=== PATIENT | female | born 1990 | race Caucasian/White ===

== ENCOUNTER 2021-07-29 22:55 | Emergency (ER) | payer OTHER ==
[2021-07-29 23:11] VITALS: TEMP 98.5
[2021-07-29] MEDS ORDERED: DIAZEPAM 5 MG/ML 2 ML INJ IVP STA (23:17)
--- NOTE | 2021-07-29 23:22 | ED ---
Seizure HPI - General Source: patient, RN notes reviewed Mode of arrival: EMS - History of Present Illness MD Complaint: seizure <Jeremy Lucas - Last Filed: 07/30/21 02:35> <Bruno Donis - Last Filed: 07/30/21 05:21> - General Chief Complaint: Seizure Stated Complaint: Seizure Time Seen by Provider: 07/29/21 23:10 - History of Present Illness Initial Comments: This is a pleasant 30-year-old female who presents to the emergency department from [facility]. Patient checked in there this morning for alcohol addiction. States that she has been drinking at stances amounts of alcohol for the past 2 or 3 months. She states 1-2/5 of hard liquor per day. Last drink was early this morning.Patient states that she had seizure activity at the facility just prior to arrival. According to bystanders this lasted about 1 minute. Patient did have a postictal event. Patient states she has no history of seizure disorder. This never happened previously. Patient has history of previous drug abuse in the past and currently takes methadone. She states this is her only medication. Denies chance of . Denies any significant injury. She is complaining of a headache. Patient does not believe she struck her head although she is not 100% certain. POSITIVE headache, no fever or chills, no changes in vision or hearing, no sore throat or difficulty with speech, no neck pain, no chest pain or shortness of breath, no abdominal pain, no nausea or vomiting, no changes in urination or bowel movements, no numbness or tingling, no extremity pain, no skin rashes or lesions. (Jeremy Lucas) Review of Systems ROS Other: All systems not noted in ROS Statement are negative. <Jeremy Lucas - Last Filed: 07/30/21 02:35> ROS Other: All systems not noted in ROS Statement are negative. <Bruno Donis - Last Filed: 07/30/21 05:21> ROS Statement: Those systems with pertinent positive or pertinent negative responses have been documented in the HPI. Past Medical History Additional Past Medical History / Comment(s): Hepatitis C, methadone patient 2 months. Past Surgical History: Section, Cholecystectomy Additional Past Surgical History / Comment(s): Gastric bypass, tubes tied Past Psychological History: Anxiety, Depression Smoking Status: Current every day smoker Past Alcohol Use History: Abuse Past Drug Use History: None Reported, Heroin, IV Drug Use, Methamphetamine <Jeremy Lucas - Last Filed: 07/30/21 02:35> General Exam General appearance: alert, in no apparent distress Head exam: Present: atraumatic, normocephalic, normal inspection Eye exam: Present: normal appearance, PERRL, EOMI. Absent: scleral icterus, conjunctival injection, nystagmus, periorbital swelling Pupils: Present: normal accommodation ENT exam: Present: normal exam, mucous membranes moist Neck exam: Present: normal inspection, full ROM. Absent: tenderness, meningismus, lymphadenopathy Respiratory exam: Present: normal lung sounds bilaterally. Absent: respiratory distress, wheezes, rales, rhonchi, stridor Cardiovascular Exam: Present: regular rate, normal rhythm, normal heart sounds. Absent: systolic murmur, diastolic murmur, rubs, gallop, clicks GI/Abdominal exam: Present: soft, normal bowel sounds. Absent: distended, tenderness, guarding, rebound, rigid Extremities exam: Present: normal inspection, full ROM, normal capillary refill. Absent: tenderness, pedal edema, joint swelling, calf tenderness Back exam: Present: normal inspection Neurological exam: Present: alert, oriented X3, CN II-XII intact, reflexes normal, other (Patient has no evidence of tremor or fasciculation. No significant nystagmus. Cranial nerves II through XII are intact. Alert and oriented 4.). Absent: altered, motor sensory deficit Psychiatric exam: Present: normal affect, normal mood. Absent: depressed, agitated, anxious, flat affect, homicidal ideation, suicidal ideation Skin exam: Present: warm, dry, intact, normal color. Absent: rash <LanceJeremy - Last Filed: 07/30/21 02:35> - General Exam Comments Initial Comments: Patient alert and oriented, cranial nerves II through XII grossly intact. (Jeremy Lucas) Course <LanceJeremy - Last Filed: 07/30/21 02:35> Vital Signs 07/29/21 23:03 Temperature 98.5 F Pulse Rate 77 Respiratory 18 Rate Blood Pressure 139/94 O2 Sat by Pulse 100 Oximetry - Reevaluation(s) Reevaluation #1: 07/30/21 01:01 Medical record is reviewed Symptoms are improved here in the emergency department Patient is informed of results and questions answered Patient in no distress Cranial nerves II through XII intact. Patient alert and oriented 4. (Ryan Lucas) Reevaluation #2: 07/30/21 02:29 Medical record is reviewed Symptoms are improved here in the emergency department Patient is informed of results and questions answered Patient in no distress Patient essentially asymptomatic, neurologically intact. Alert nontransport. Cranial nerves II through XII intact. CIWA =0 (Jeremy Lucas) Medical Decision Making - Lab Data Result diagrams: 07/29/21 23:17 07/29/21 23:17 <Jeremy Lucas - Last Filed: 07/30/21 02:35> - Lab Data Result diagrams: 07/29/21 23:17 07/29/21 23:17 <Bruno Donis - Last Filed: 07/30/21 05:21> - Medical Decision Making New-onset seizure likely secondary to alcohol withdrawal. Diazepam ordered. New-onset seizure evaluation initiated. Patient reevaluated in stable. Patient is in no acute distress. The case was discussed in detail with ED attending physician. Presentation, findings, treatment plan discussed in detail. Patient was told to return to the ER for any signs or symptoms worsen. Told to return immediately if any other problems arise. All questions answered. Treatment plan discussed. Patient in agreement Every effort has been made to ensure accuracy of this dictation. However, due to the limitations of electronic medical records and dictation devices, errors in charting still occur. Health Information Management Director, Dr. Donis (Jeremy Lucas) - Lab Data Lab Results 07/29/21 07/29/21 07/29/21 Range/Units 23:17 23:17 23:17 WBC 3.2 L (3.8-10.6) k/uL RBC 3.83 (3.80-5.40) m/uL Hgb 10.0 L (11.4-16.0) gm/dL Hct 31.8 L (34.0-46.0) % MCV 82.9 (80.0-100.0) fL MCH 26.0 (25.0-35.0) pg MCHC 31.4 (31.0-37.0) g/dL RDW 16.5 H (11.5-15.5) % Plt Count 178 (150-450) k/uL MPV 7.7 Neutrophils % 67 % Lymphocytes % 20 % Monocytes % 7 % Eosinophils % 2 % Basophils % 2 % Neutrophils # 2.1 (1.3-7.7) k/uL Lymphocytes # 0.6 L (1.0-4.8) k/uL Monocytes # 0.2 (0-1.0) k/uL Eosinophils # 0.1 (0-0.7) k/uL Basophils # 0.1 (0-0.2) k/uL Hypochromasia Marked Anisocytosis Slight Sodium 134 L (137-145) mmol/L Potassium 4.1 (3.5-5.1) mmol/L Chloride 104 (98-107) mmol/L Carbon Dioxide 28 (22-30) mmol/L Anion Gap 2 mmol/L BUN 10 (7-17) mg/dL Creatinine 0.82 (0.52-1.04) mg/dL Est GFR (CKD-EPI)AfAm >90 (>60 ml/min/1.73 sqM) Est GFR (CKD-EPI)NonAf >90 (>60 ml/min/1.73 sqM) Glucose 79 (74-99) mg/dL Calcium 8.0 L (8.4-10.2) mg/dL Phosphorus 3.6 (2.5-4.5) mg/dL Magnesium 2.1 (1.6-2.3) mg/dL Total Bilirubin 0.1 L (0.2-1.3) mg/dL AST 141 H (14-36) U/L ALT 68 H (4-34) U/L Alkaline Phosphatase 79 (38-126) U/L Total Protein 5.8 L (6.3-8.2) g/dL Albumin 3.2 L (3.5-5.0) g/dL Urine Color Yellow Urine Appearance Clear (Clear) Urine pH 8.0 (5.0-8.0) Ur Specific [place] 1.017 (1.001-1.035) Urine Protein Negative (Negative) Urine Glucose (UA) Negative (Negative) Urine Ketones Negative (Negative) Urine Blood Negative (Negative) Urine Nitrite Negative (Negative) Urine Bilirubin Negative (Negative) Urine Urobilinogen <2.0 (<2.0) mg/dL Ur Leukocyte Esterase Moderate H (Negative) Urine RBC 2 (0-5) /hpf Urine WBC 16 H (0-5) /hpf Urine WBC Clumps Rare H (None) /hpf Ur Squamous Epith Cells 3 (0-4) /hpf Urine Bacteria Rare H (None) /hpf Urine HCG, Qual (Not Detectd) Urine Opiates Screen Not Detected (NotDetected) Ur Oxycodone Screen Not Detected (NotDetected) Urine Methadone Screen Detected H (NotDetected) Ur Propoxyphene Screen Not Detected (NotDetected) Ur Barbiturates Screen Not Detected (NotDetected) U Tricyclic Antidepress Not Detected (NotDetected) Ur Phencyclidine Scrn Not Detected (NotDetected) Ur Amphetamines Screen Not Detected (NotDetected) U Methamphetamines Scrn Not Detected (NotDetected) U Benzodiazepines Scrn Detected H (NotDetected) Urine Cocaine Screen Not Detected (NotDetected) U Marijuana (THC) Screen Not Detected (NotDetected) Serum Alcohol <10 mg/dL 07/29/21 Range/Units 23:19 WBC (3.8-10.6) k/uL RBC (3.80-5.40) m/uL Hgb (11.4-16.0) gm/dL Hct (34.0-46.0) % MCV (80.0-100.0) fL MCH (25.0-35.0) pg MCHC (31.0-37.0) g/dL RDW (11.5-15.5) % Plt Count (150-450) k/uL MPV Neutrophils % % Lymphocytes % % Monocytes % % Eosinophils % % Basophils % % Neutrophils # (1.3-7.7) k/uL Lymphocytes # (1.0-4.8) k/uL Monocytes # (0-1.0) k/uL Eosinophils # (0-0.7) k/uL Basophils # (0-0.2) k/uL Hypochromasia Anisocytosis Sodium (137-145) mmol/L Potassium (3.5-5.1) mmol/L Chloride (98-107) mmol/L Carbon Dioxide (22-30) mmol/L Anion Gap mmol/L BUN (7-17) mg/dL Creatinine (0.52-1.04) mg/dL Est GFR (CKD-EPI)AfAm (>60 ml/min/1.73 sqM) Est GFR (CKD-EPI)NonAf (>60 ml/min/1.73 sqM) Glucose (74-99) mg/dL Calcium (8.4-10.2) mg/dL Phosphorus (2.5-4.5) mg/dL Magnesium (1.6-2.3) mg/dL Total Bilirubin (0.2-1.3) mg/dL AST (14-36) U/L ALT (4-34) U/L Alkaline Phosphatase (38-126) U/L Total Protein (6.3-8.2) g/dL Albumin (3.5-5.0) g/dL Urine Color Urine Appearance (Clear) Urine pH (5.0-8.0) Ur Specific [place] (1.001-1.035) Urine Protein (Negative) Urine Glucose (UA) (Negative) Urine Ketones (Negative) Urine Blood (Negative) Urine Nitrite (Negative) Urine Bilirubin (Negative) Urine Urobilinogen (<2.0) mg/dL Ur Leukocyte Esterase (Negative) Urine RBC (0-5) /hpf Urine WBC (0-5) /hpf Urine WBC Clumps (None) /hpf Ur Squamous Epith Cells (0-4) /hpf Urine Bacteria (None) /hpf Urine HCG, Qual Not Detected (Not Detectd) Urine Opiates Screen (NotDetected) Ur Oxycodone Screen (NotDetected) Urine Methadone Screen (NotDetected) Ur Propoxyphene Screen (NotDetected) Ur Barbiturates Screen (NotDetected) U Tricyclic Antidepress (NotDetected) Ur Phencyclidine Scrn (NotDetected) Ur Amphetamines Screen (NotDetected) U Methamphetamines Scrn (NotDetected) U Benzodiazepines Scrn (NotDetected) Urine Cocaine Screen (NotDetected) U Marijuana (THC) Screen (NotDetected) Serum Alcohol mg/dL - EKG Data EKG Comments: EKG done at 12:51 AM reveals sinus bradycardia with a rate of 55, prolonged QT interval at 400 in 68 ms, QTc. Normal axis. No acute ST changes. Flipped T- wave and T-wave flattening noted in V2 and V3 respectively. However, these are mostly negative QRS complexes. No definitive acute changes. (Jeremy Lucas) Disposition Is patient prescribed a controlled substance at d/c from ED?: No Time of Disposition: 02:30 <Jeremy Lucas - Last Filed: 07/30/21 02:35> <Bruno Donis - Last Filed: 07/30/21 05:21> Clinical Impression: Alcohol withdrawal seizure without complication Disposition: HOME SELF-CARE Condition: Stable Instructions (If sedation given, give patient instructions): Alcohol Withdrawal (ED) Additional Instructions: Follow-up with your regular physician as directed. Return to the ER immediately if any symptoms worsen, new symptoms arise, or any other problems develop. Return to [facility] facility for further treatment Referrals: None,Stated [Primary Care Provider] - 1-2 days
--- NOTE | 2021-07-30 00:46 | XR ---
EXAMINATION TYPE: XR chest 1V portable DATE OF EXAM: 07/30/2021 COMPARISON: None HISTORY: Seizure TECHNIQUE: Serial view FINDINGS: Heart and mediastinum are normal. Lungs are clear. Diaphragm is normal. Bony thorax appears normal. IMPRESSION: Normal chest
[2021-07-30 00:59] LABS: Anisocytosis Slight; Basophils # (A) 0.1 k/uL (0-0.2); Basophils % (A) 2 %; Eosinophils # (A) 0.1 k/uL (0-0.7); Eosinophils % (A) 2 %; HCT 31.8 % (34.0-46.0); Hypochromasia Marked; Lymphocytes # (A) 0.6 k/uL (1.0-4.8); Lymphocytes % (A) 20 %; MCHC 31.4 g/dL (31.0-37.0); MCV 82.9 fL (80.0-100.0); Mean Platelet Volume 7.7; Monocytes # (A) 0.2 k/uL (0-1.0); Monocytes % (A) 7 %; Neutrophils # (A) 2.1 k/uL (1.3-7.7); Neutrophils % (A) 67 %; Platelet Count 178 k/uL (150-450); RBC 3.83 m/uL (3.80-5.40); RDW 16.5 % (11.5-15.5); WBC 3.2 k/uL (3.8-10.6)
[2021-07-30 01:10] LABS: ALT 68 U/L (4-34); AST 141 U/L (14-36); African American GFR (CKD) >90 (>60 ml/min/1.73 sqM); Albumin 3.2 g/dL (3.5-5.0); Alcohol <10 mg/dL; Alkaline Phosphatase 79 U/L (38-126); Anion Gap 2 mmol/L; Blood Urea Nitrogen 10 mg/dL (7-17); Carbon Dioxide 28 mmol/L (22-30); Chloride 104 mmol/L (98-107); Glucose 79 mg/dL (74-99); Magnesium 2.1 mg/dL (1.6-2.3); Non-African American GFR(CKD) >90 (>60 ml/min/1.73 sqM); Phosphorus 3.6 mg/dL (2.5-4.5); Potassium 4.1 mmol/L (3.5-5.1); Sodium 134 mmol/L (137-145); Total Bilirubin 0.1 mg/dL (0.2-1.3); Total Protein 5.8 g/dL (6.3-8.2)
--- NOTE | 2021-07-30 01:33 | CT ---
EXAM: CT Head Without Intravenous Contrast CLINICAL HISTORY: ITS.REASON CT Reason: seizure activity TECHNIQUE: Axial computed tomography images of the head/brain without intravenous contrast. CTDI is 49.2 mGy and DLP is 1114.4 mGy-cm. This CT exam was performed using one or more of the following dose reduction techniques: automated exposure control, adjustment of the mA and/or kV according to patient size, and/or use of iterative reconstruction technique. COMPARISON: No relevant prior studies available. FINDINGS: Brain: No hemorrhage or mass effect. Ventricles: No hydrocephalus. Bones/joints: Unremarkable. Soft tissues: Unremarkable. Sinuses: No air fluid level. Mastoid air cells: Clear. IMPRESSION: No acute hemorrhage, hydrocephalus, or mass effect.
[2021-07-30 01:58] LABS: Appearance,Urine Clear (Clear); Bacteria,Urine Rare /hpf; Bilirubin,Urine Negative (Negative); Blood,Urine Negative (Negative); Color,Urine Yellow; Glucose,Urine (UA) Negative (Negative); Ketones,Urine Negative (Negative); Leukocyte Esterase,Urine Moderate (Negative); Nitrite,Urine Negative (Negative); Protein,Urine Negative (Negative); RBC,Urine 2 /hpf (0-5); Specific Gravity,Urine 1.017 (1.001-1.035); Squamous Epithelial Cell,Urine 3 /hpf (0-4); Urobilinogen,Urine <2.0 mg/dL (<2.0); WBC,Urine 16 /hpf (0-5)
[2021-07-30 02:00] LABS: Amphetamine Screen,Urine Not Detected (NotDetected); Barbiturate Screen,Urine Not Detected (NotDetected); Benzodiazepines Screen,Urine Detected (NotDetected); Cocaine Screen,Urine Not Detected (NotDetected); Methadone Screen, Urine Detected (NotDetected); Opiate Screen,Urine Not Detected (NotDetected); Oxycodone Screen, Urine Not Detected (NotDetected); Phencyclidine Screen,Urine Not Detected (NotDetected); Tricyclic Antidepressant,Urine Not Detected (NotDetected); Urn Cannabinoid Scrn Not Detected (NotDetected)
[2021-07-30] MEDS ORDERED: THIAMINE 100 MG/ML 2 ML VIAL IVP STA (02:12)
[2021-07-30] MEDS ORDERED: MAGNESIUM SULFATE-D5W PMX 1 GM in DEXTROSE/WATER 1 100ML.BAG IVPB ONE (02:12)
[2021-07-30] MEDS ORDERED: FOLIC ACID 1 MG TAB PO STA (02:12)
[2021-07-30] MEDS ORDERED: SODIUM CHLORIDE 0.9% 500 ML 500 ML IV ONE (02:12)
[2021-07-30] MEDS ORDERED: METHADONE 5 MG TAB PO STA (06:26)
[2021-07-30 07:45] VITALS: BP 125/72; PULSE 56; RESP 16
== END 2021-07-30 10:13 | disposition home or self-care (01) ==
LOC: EC 22:55
DX: F10.239 Alcohol dependence with withdrawal, unspecified (principal); R56.9 Unspecified convulsions; Y90.0 Blood alcohol level of less than 20 mg/100 ml; F17.200 Nicotine dependence, unspecified, uncomplicated
CPT/HCPCS: 36415; 93005; 80053; 83735; 84100; 85025; 81001; 81025; 80306; 80320; 87086; 71045; 70450; 99285; 96365; 96366; 96375; 96361; J3411; J3360; J3475; S0109

== ENCOUNTER 2021-09-13 12:02 | Observation (INO) | payer OTHER ==
[2021-09-13] MEDS ORDERED: SODIUM CHLORIDE 0.9% 1,000 ML IV ONE ×2 (12:40→13:55)
[2021-09-13] MEDS ORDERED: SODIUM CHLORIDE 0.9% 500 ML 500 ML IV ONE (12:40)
--- NOTE | 2021-09-13 12:45 | ED ---
General Adult HPI - General Chief complaint: Alcohol Stated complaint: ETOH Time Seen by Provider: 09/13/21 12:05 Source: patient, RN notes reviewed, old records reviewed Mode of arrival: EMS Limitations: no limitations - History of Present Illness Initial comments: This is a 30-year-old female who was sent in from [facility] for being intoxicated. Patient was trying to get rehabilitation there but they stated she was too intoxicated and need to be seen medically first. Patient has no complaints whatsoever. Patient denies any fever chills or cough per patient denies any chest pain difficult breathing shortest breath patient denies any abdominal pain. Patient denies any nausea vomiting diarrhea. Patient states she drank a bunch of vodka today. Patient denies any fall or injury. Patient denies drug use patient denies any suicidal homicidal ideations. - Related Data Home Medications Medication Instructions Recorded Confirmed Cephalexin [Keflex] 500 mg PO Q8HR 09/13/21 09/13/21 Disulfiram [Antabuse] 250 mg PO DAILY 09/13/21 09/13/21 Methadone HCl [Methadone Intensol] 130 mg PO DAILY 09/13/21 09/13/21 Nicotine 21Mg/24Hr Patch [Habitrol] 1 patch TOPICAL DAILY 09/13/21 09/13/21 Tamsulosin [Flomax] 0.4 mg PO DAILY 09/13/21 09/13/21 buPROPion XL [Wellbutrin XL] 300 mg PO DAILY 09/13/21 09/13/21 diazePAM [Valium] 2 mg PO QID PRN 09/13/21 09/13/21 Allergies Allergy/AdvReac Type Severity Reaction Status Date / Time No Known Allergies Allergy Verified 09/13/21 12:07 Review of Systems ROS Statement: Those systems with pertinent positive or pertinent negative responses have been documented in the HPI. ROS Other: All systems not noted in ROS Statement are negative. Past Medical History Additional Past Medical History / Comment(s): Hepatitis C, methadone patient 2 months. History of Any Multi-Drug Resistant Organisms: None Reported Past Surgical History: Section, Cholecystectomy Additional Past Surgical History / Comment(s): Gastric bypass, tubes tied Past Psychological History: Anxiety, Depression Smoking Status: Current every day smoker Past Alcohol Use History: Abuse Past Drug Use History: None Reported, Heroin, IV Drug Use, Methamphetamine General Exam - General Exam Comments Initial Comments: GENERAL: Patient is well-developed and well-nourished. Patient is nontoxic and well- hydrated and is in no acute distress but appears intoxicated. ENT: Neck is soft and supple. No significant lymphadenopathy is noted. Oropharynx is clear. Moist mucous membranes. Neck has full range of motion without eliciting any pain. EYES: The sclera were anicteric and conjunctiva were pink and moist. Extraocular movements were intact and pupils were equal round and reactive to light. Eyelids were unremarkable. PULMONARY: Unlabored respirations. Good breath sounds bilaterally. No audible rales rhonchi or wheezing was noted. CARDIOVASCULAR: There is a regular rate and rhythm without any murmurs gallops or rubs. ABDOMEN: Soft and nontender with normal bowel sounds. SKIN: Skin is clear with no lesions or rashes and otherwise unremarkable. NEUROLOGIC: Patient is alert and oriented x3. Cranial nerves II through XII are grossly intact. Motor and sensory are also intact. Normal speech, volume and content. Symmetrical smile. MUSCULOSKELETAL: Normal extremities with adequate strength and full range of motion. No lower extremity swelling or edema. No calf tenderness. LYMPHATICS: No significant lymphadenopathy is noted PSYCHIATRIC: Normal psychiatric evaluation. Limitations: no limitations Course Vital Signs 09/13/21 12:04 Temperature 97.9 F Pulse Rate 84 Respiratory 20 Rate Blood Pressure 128/48 O2 Sat by Pulse 98 Oximetry Medical Decision Making - Medical Decision Making Patient's alcohol 344. I spoke with some physicians he agreed to admit the patient admitted the patient wrote admitting orders. - Lab Data Result diagrams: 09/13/21 12:47 09/13/21 12:47 Lab Results 09/13/21 09/13/21 Range/Units 12:47 12:47 WBC 4.1 (3.8-10.6) k/uL RBC 4.30 (3.80-5.40) m/uL Hgb 11.7 (11.4-16.0) gm/dL Hct 36.5 (34.0-46.0) % MCV 84.9 (80.0-100.0) fL MCH 27.1 (25.0-35.0) pg MCHC 31.9 (31.0-37.0) g/dL RDW 18.1 H (11.5-15.5) % Plt Count 356 (150-450) k/uL MPV 7.3 Neutrophils % 57 % Lymphocytes % 30 % Monocytes % 5 % Eosinophils % 3 % Basophils % 2 % Neutrophils # 2.4 (1.3-7.7) k/uL Lymphocytes # 1.2 (1.0-4.8) k/uL Monocytes # 0.2 (0-1.0) k/uL Eosinophils # 0.1 (0-0.7) k/uL Basophils # 0.1 (0-0.2) k/uL Hypochromasia Moderate Anisocytosis Slight Sodium 140 (137-145) mmol/L Potassium 3.6 (3.5-5.1) mmol/L Chloride 105 (98-107) mmol/L Carbon Dioxide 24 (22-30) mmol/L Anion Gap 11 mmol/L BUN 10 (7-17) mg/dL Creatinine 0.72 (0.52-1.04) mg/dL Est GFR (CKD-EPI)AfAm >90 (>60 ml/min/1.73 sqM) Est GFR (CKD-EPI)NonAf >90 (>60 ml/min/1.73 sqM) Glucose 80 (74-99) mg/dL Calcium 8.6 (8.4-10.2) mg/dL Magnesium 1.6 (1.6-2.3) mg/dL Total Bilirubin 0.3 (0.2-1.3) mg/dL AST 194 H (14-36) U/L ALT 115 H (4-34) U/L Alkaline Phosphatase 85 (38-126) U/L Total Protein 6.4 (6.3-8.2) g/dL Albumin 3.8 (3.5-5.0) g/dL Serum Alcohol 344 H* mg/dL Disposition Clinical Impression: Alcoholic intoxication Disposition: ADMITTED IP TO THIS HOSP Referrals: None,Stated [Primary Care Provider] - 1-2 days Time of Disposition: 13:38
[2021-09-13 12:54] LABS: Anisocytosis Slight; Basophils # (A) 0.1 k/uL (0-0.2); Basophils % (A) 2 %; Eosinophils # (A) 0.1 k/uL (0-0.7); Eosinophils % (A) 3 %; HCT 36.5 % (34.0-46.0); HGB 11.7 gm/dL (11.4-16.0); Hypochromasia Moderate; Lymphocytes # (A) 1.2 k/uL (1.0-4.8); Lymphocytes % (A) 30 %; MCH 27.1 pg (25.0-35.0); MCHC 31.9 g/dL (31.0-37.0); MCV 84.9 fL (80.0-100.0); Mean Platelet Volume 7.3; Monocytes # (A) 0.2 k/uL (0-1.0); Monocytes % (A) 5 %; Neutrophils # (A) 2.4 k/uL (1.3-7.7); Neutrophils % (A) 57 %; Platelet Count 356 k/uL (150-450); RDW 18.1 % (11.5-15.5); WBC 4.1 k/uL (3.8-10.6)
[2021-09-13 13:08] LABS: ALT 115 U/L (4-34); AST 194 U/L (14-36); African American GFR (CKD) >90 (>60 ml/min/1.73 sqM); Albumin 3.8 g/dL (3.5-5.0); Alkaline Phosphatase 85 U/L (38-126); Anion Gap 11 mmol/L; Blood Urea Nitrogen 10 mg/dL (7-17); Calcium 8.6 mg/dL (8.4-10.2); Carbon Dioxide 24 mmol/L (22-30); Chloride 105 mmol/L (98-107); Glucose 80 mg/dL (74-99); Magnesium 1.6 mg/dL (1.6-2.3); Non-African American GFR(CKD) >90 (>60 ml/min/1.73 sqM); Potassium 3.6 mmol/L (3.5-5.1); Sodium 140 mmol/L (137-145); Total Bilirubin 0.3 mg/dL (0.2-1.3); Total Protein 6.4 g/dL (6.3-8.2)
[2021-09-13 13:28] LABS: Alcohol 344 mg/dL
[2021-09-13] MEDS ORDERED: chlordiazePOXIDE 25 MG CAP PO PRN ×3 (13:42)
--- NOTE | 2021-09-13 15:20 | P.HPIM ---
History of Present Illness H&P Date: 09/13/21 History of Presenting Illness: Patient is a 30-year-old female with history of anxiety, depression, hepatitis C, alcohol abuse, nicotine dependence, and previous IVDA with heroin and methamphetamines. Patient presented to the emergency department from [facility] for reports of intoxication. Patient reportedly drank an excessive amount of alcohol prior to going to [facility] for rehab. Patient denied having any complaints. She underwent full evaluation in the emergency department. CBC unremarkable. CMP revealing elevated AST of 194 and elevated ALT of 115. Serum alcohol level was 344. Patient admitted under our services to observation for detox with plans for discharge once sober. Patient seen and fully evaluated at bedside. Patient was sleeping but easily awoken via verbal stimuli. 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 Patient reports she was supposed to go to [facility] or she could lose her daughter. Patient was educated that she did go to [facility] however she presented intoxicated and they will not take her and their facility intoxicated. Patient was updated on plan of care to be monitored overnight and provided with IV fluid hydration and plans to discharge back to [facility] once clinically sober tomorrow morning. Patient denied having any recent falls or injuries. Denies having any headache, lightheadedness, dizziness, chest pain, palpitations, shortness of breath, or experiencing any numbness/tingling/weakness/pain in her extremities. Review of systems: Pertinent positives and negatives as discussed in HPI, a complete review of systems was performed and all other systems are negative. Physical exam: Vital signs reviewed and stable. Disheveled appearance General: Nontoxic, no distress and appears stated age. Derm: Skin warm and dry, normal coloration for ethnicity. Head: Atraumatic, normocephalic and symmetric. Eyes: EOMs intact, no lid lag, and anicteric sclera Mouth: no lip lesions, mucus membranes moist Cardiovascular: regular rate and rhythm with normal S1S2, no murmur, positive posterior tibial pulses bilaterally, and cap refill < 2 seconds. Lungs: Respirations even, regular, and unlabored on room air. Lungs CTA bilaterally, no rhonchi, no rales, no wheezing, and no accessory muscle usage. Abdominal: soft, nontender to palpation, no guarding, no appreciable organomegaly Ext: ROM intact. No gross muscle atrophy, no edema, no contractures Neuro: Speech clear, face symmetrical and CN II-XII grossly intact with no noted focal neuro deficits Psych: Alert and oriented to person, place, time, and situation. Appropriate and pleasant affect. Assessment and Plan of Care: Alcohol intoxication -CIWA Protocol with symptom triggered medication management with Librium -IV fluid hydration. -Thiamine 100 mg twice a day -Multivitamin daily -Folate 1 mg daily -Seizure, fall, aspiration, and elopement precautions in place. -Urine drug screen -Urine hCG -Continued close monitoring of electrolytes and replace as needed. -Telemetry monitoring. Hepatitis C Elevated liver enzymes -AST 194 and ALT 1:15 with alkaline phosphatase of 85. Elevated liver enzymes possibly secondary to untreated hepatitis C in combination with daily alcohol abuse. -Continue to monitor with repeat a.m. labs. -Caution with hepatotoxic medications. Chronic pain with daily methadone use -Continue methadone to prevent further withdrawal. Nicotine dependence -Continue to educate encourage patient on the importance of smoking cessation and the risks associated with continued use. -Nicotine patch The patient is admitted with an anticipated less than 2 midnight stay for evaluation of alcohol intoxication CODE STATUS: Full code DVT prophylaxis: Heparin Discussed with: Patient and RN Anticipated discharge date: Tomorrow morning Anticipated discharge place: Home versus return to [facility] A total of 44 minutes was spent on the care of this complex patient more than 50% of the time was spent in counseling and care coordination. Past Medical History Additional Past Medical History / Comment(s): Hepatitis C, methadone patient 2 months. History of Any Multi-Drug Resistant Organisms: None Reported Past Surgical History: Section, Cholecystectomy Additional Past Surgical History / Comment(s): Gastric bypass, tubes tied Past Psychological History: Anxiety, Depression Smoking Status: Current every day smoker Past Alcohol Use History: Abuse Past Drug Use History: None Reported, Heroin, IV Drug Use, Methamphetamine - Past Family History Father Family Medical History: Cancer Additional Family Medical History / Comment(s): Colorectal cancer Medications and Allergies Home Medications Medication Instructions Recorded Confirmed Type Cephalexin [Keflex] 500 mg PO Q8HR 09/13/21 09/13/21 History Disulfiram [Antabuse] 250 mg PO DAILY 09/13/21 09/13/21 History Methadone HCl [Methadone Intensol] 130 mg PO DAILY 09/13/21 09/13/21 History Nicotine 21Mg/24Hr Patch [Habitrol] 1 patch TOPICAL DAILY 09/13/21 09/13/21 History Tamsulosin [Flomax] 0.4 mg PO DAILY 09/13/21 09/13/21 History buPROPion XL [Wellbutrin XL] 300 mg PO DAILY 09/13/21 09/13/21 History diazePAM [Valium] 2 mg PO QID PRN 09/13/21 09/13/21 History Allergies Allergy/AdvReac Type Severity Reaction Status Date / Time No Known Allergies Allergy Verified 09/13/21 12:07 Physical Exam Vitals: Vital Signs Temp Pulse Resp BP Pulse Ox 09/13/21 12:04 97.9 F 84 20 128/48 98 Intake and Output 09/13/21 09/13/21 09/13/21 06:59 14:59 22:59 Other: Weight 86.183 kg Results CBC & Chem 7: 09/13/21 12:47 09/13/21 12:47 Labs: Abnormal Lab Results - Last 24 Hours (Table) 09/13/21 09/13/21 Range/Units 12:47 12:47 RDW 18.1 H (11.5-15.5) % AST 194 H (14-36) U/L ALT 115 H (4-34) U/L Serum Alcohol 344 H* mg/dL
[2021-09-13] MEDS: HEPARIN SODIUM,PORCINE/PF 5,000 UNIT/0.5 ML SYRINGE SQ SCH (17:50)
[2021-09-13 19:58] LABS: Amphetamine Screen,Urine Not Detected (NotDetected); Barbiturate Screen,Urine Not Detected (NotDetected); Benzodiazepines Screen,Urine Detected (NotDetected); Cocaine Screen,Urine Not Detected (NotDetected); Methadone Screen, Urine Detected (NotDetected); Opiate Screen,Urine Not Detected (NotDetected); Oxycodone Screen, Urine Not Detected (NotDetected); Phencyclidine Screen,Urine Not Detected (NotDetected); Tricyclic Antidepressant,Urine Not Detected (NotDetected); Urn Cannabinoid Scrn Not Detected (NotDetected)
[2021-09-13] MEDS: chlordiazePOXIDE 25 MG CAP PO PRN (21:02)
[2021-09-14] MEDS: chlordiazePOXIDE 25 MG CAP PO PRN (00:50)
[2021-09-14] MEDS ORDERED: chlordiazePOXIDE 25 MG CAP PO STA (02:43)
[2021-09-14] MEDS: HEPARIN SODIUM,PORCINE/PF 5,000 UNIT/0.5 ML SYRINGE SQ SCH ×3 (02:51→15:41)
[2021-09-14 07:59] VITALS: BP 114/66; PULSE 72; RESP 14; TEMP 98.7
[2021-09-14] MEDS ORDERED: THIAMINE 100 MG TAB PO SCH (09:00)
[2021-09-14] MEDS ORDERED: METHADONE 10 MG TAB PO SCH (09:00)
[2021-09-14] MEDS ORDERED: NICOTINE 21MG/24HR PATCH TRANSDERM SCH (09:00)
[2021-09-14] MEDS ORDERED: MULTIVITAMINS, THERA 1 EACH TAB PO SCH (09:00)
[2021-09-14] MEDS ORDERED: buPROPion XL 300 MG TAB.ER.24H PO SCH (09:00)
[2021-09-14 10:40] LABS: HCT 32.3 % (37.2-46.3); HGB 10.2 g/dL (12.0-15.0); MCH 26.3 pg (27.0-32.0); MCHC 31.6 g/dL (32.0-37.0); MCV 83.2 fL (80.0-97.0); Mean Platelet Volume 11.3 fL (9.5-12.2); NRBC Per 100 WBC 0 /100 WBCS (0.0-0.0); Platelet Count 283 X 10*3/uL (140-440); RBC 3.88 X 10*6/uL (4.10-5.20); RDW 19.7 % (11.5-14.5)
[2021-09-14 10:56] LABS: African American GFR (CKD) 132.9 (60.0-200.0); Albumin 3.5 g/dL (3.8-4.9); Albumin/Globulin Ratio 1.75 (1.60-3.17); BUN/Creat Ratio 14.86 Ratio (12.00-20.00); Blood Urea Nitrogen 10.4 mg/dL (9.0-27.0); Calcium 8.5 mg/dL (8.7-10.3); Magnesium 1.6 mg/dL (1.5-2.4); Non-African American GFR(CKD) 114.6 (60.0-200.0); Potassium 3.9 mmol/L (3.5-5.5); Total Bilirubin 0.5 mg/dL (0.30-1.20); Total Protein 5.5 g/dL (6.2-8.2)
[2021-09-14] MEDS ORDERED: MAGNESIUM OXIDE 400 MG TAB PO SCH (11:18)
--- NOTE | 2021-09-14 11:19 | P.DS ---
Providers Date of admission: 09/13/21 13:55 Expected date of discharge: 09/14/21 Attending physician: Oscar Aaron MD Primary care physician: Stated None Hospital Course: Discharge Diagnosis: Alcohol intoxication an active alcoholic. Upon admission patient's alcohol level was 344. Patient admitted to observation and provided with vigorous IV fluid hydration and placed on CIWA protocol with symptom triggered medication management with Librium. Patient clinically sober and plans to return to [facility].. Patient medically stable for discharge to [facility] at this time. Hepatitis C Elevated liver enzymes -AST 194 and ALT 1:15 with alkaline phosphatase of 85. Elevated liver enzymes possibly secondary to untreated hepatitis C in combination with daily alcohol abuse. -Recommend patient follow up outpatient with PCP upon discharge for continued monitoring of liver enzymes. It was recommended with patient to discuss possibility of treatment of hepatitis C with her PCP once she has obtained and maintained sobriety. Chronic pain with daily methadone use. Continue methadone to prevent further withdrawal. Nicotine dependence -Continue to educate encourage patient on the importance of smoking cessation and the risks associated with continued use. -Nicotine patch Hospital Course: Patient is a 30-year-old female with history of anxiety, depression, hepatitis C, alcohol abuse, nicotine dependence, and previous IVDA with heroin and methamphetamines. Patient presented to the emergency department from [facility] for reports of intoxication. Patient reportedly drank an excessive amount of alcohol prior to going to [facility] for rehab. Patient denied having any complaints. She underwent full evaluation in the emergency department. CBC unremarkable. CMP revealing elevated AST of 194 and elevated ALT of 115. Serum alcohol level was 344. Patient admitted under our services to observation for detox with plans for discharge once sober. Patient seen and fully evaluated at bedside. Patient was sleeping but easily awoken via verbal stimuli. Patient reports she cannot be admitted to the hospital because she has to go pick up attendant her daughter. Patient reports she was supposed to go to [facility] or she could lose her daughter. Patient was educated that she did go to [facility] however she presented intoxicated and they will not take her and their facility intoxicated. Patient was updated on plan of care to be monitored overnight and provided with IV fluid hydration and plans to discharge back to [facility] once clinically sober tomorrow morning. Patient denied having any recent falls or injuries. Denies having any headache, lightheadedness, dizziness, chest pain, palpitations, shortness of breath, or experiencing any numbness/tingling/weakness/pain in her extremities. Physical exam: Vital signs reviewed and stable. Disheveled appearance General: Nontoxic, no distress and appears stated age. Derm: Skin warm and dry, normal coloration for ethnicity. Head: Atraumatic, normocephalic and symmetric. Eyes: EOMs intact, no lid lag, and anicteric sclera Mouth: no lip lesions, mucus membranes moist Cardiovascular: regular rate and rhythm with normal S1S2, no murmur, positive posterior tibial pulses bilaterally, and cap refill < 2 seconds. Lungs: Respirations even, regular, and unlabored on room air. Lungs CTA bilaterally, no rhonchi, no rales, no wheezing, and no accessory muscle usage. Abdominal: soft, nontender to palpation, no guarding, no appreciable organomegaly Ext: ROM intact. No gross muscle atrophy, no edema, no contractures Neuro: Speech clear, face symmetrical and CN II-XII grossly intact with no noted focal neuro deficits Psych: Alert and oriented to person, place, time, and situation. Appropriate and pleasant affect. A total of 38 minutes of time were spent preparing this complex discharge summary. Pt was discharged on 09/14/21 at 11:17 AM Carlin Saldana NP rendered care for this patient independently, reviewed the findings and plan as documented in the note above. I did not physically speak with or examine the patient on this date. Patient Condition at Discharge: Stable Plan - Discharge Summary Discharge Rx Participant: No New Discharge Prescriptions: New Thiamine [Vitamin B-1] 100 mg PO DAILY tab Magnesium Oxide [Mag-Ox] 400 mg PO DAILY tab Multivitamins, Thera [Multivitamin (formulary)] 1 each PO DAILY tab Continue diazePAM [Valium] 2 mg PO QID PRN PRN Reason: Anxiety Cephalexin [Keflex] 500 mg PO Q8HR Tamsulosin [Flomax] 0.4 mg PO DAILY Methadone HCl [Methadone Intensol] 130 mg PO DAILY Nicotine 21Mg/24Hr Patch [Habitrol] 1 patch TOPICAL DAILY Disulfiram [Antabuse] 250 mg PO DAILY buPROPion XL [Wellbutrin XL] 300 mg PO DAILY Discharge Medication List Cephalexin [Keflex] 500 mg PO Q8HR 09/13/21 [History] Disulfiram [Antabuse] 250 mg PO DAILY 09/13/21 [History] Methadone HCl [Methadone Intensol] 130 mg PO DAILY 09/13/21 [History] Nicotine 21Mg/24Hr Patch [Habitrol] 1 patch TOPICAL DAILY 09/13/21 [History] Tamsulosin [Flomax] 0.4 mg PO DAILY 09/13/21 [History] buPROPion XL [Wellbutrin XL] 300 mg PO DAILY 09/13/21 [History] diazePAM [Valium] 2 mg PO QID PRN 09/13/21 [History] Magnesium Oxide [Mag-Ox] 400 mg PO DAILY tab 09/14/21 [Rx] Multivitamins, Thera [Multivitamin (formulary)] 1 each PO DAILY tab 09/14/21 [Rx] Thiamine [Vitamin B-1] 100 mg PO DAILY tab 09/14/21 [Rx] Follow up Appointment(s)/Referral(s): Dustin Small MD [REFERRING] - 1 Week (office is not answering Please call to schedule appointment) Patient Instructions/Handouts: Alcohol Intoxication (DC) Activity/Diet/Wound Care/Special Instructions: Activity: As tolerated. Diet: Regular diet Special Instructions: Good luck on your journey towards sobriety. You have been medically cleared for discharge to return to [facility] for drug/alcohol detox. Upon discharge from [facility], strongly advised you to follow up with PCP, contact information was provided to you on this discharge packet to follow-up for repeat liver enzymes to ensure that your elevated liver enzymes continue to decrease. Once you are sober and remain sober from drug and alcohol use, they can advise you on how to properly obtain treatment for your hepatitis C. Thank you for allowing us to participate in your care, it was truly a pleasure having you for our patient!!! Discharge Disposition: HOME SELF-CARE
[2021-09-14 13:16] VITALS: BMI 26.4
== END 2021-09-14 16:37 | disposition home or self-care (01) ==
LOC: EC 12:02 → 4SSUR 13:55 → UNDODISOB 09-14 16:10
PROVIDERS: ADMIT Student in an Organized Health Care Education/Training Program; ATTEND Student in an Organized Health Care Education/Training Program
DX: F10.229 Alcohol dependence with intoxication, unspecified (principal); Y90.8 Blood alcohol level of 240 mg/100 ml or more; F41.9 Anxiety disorder, unspecified; F32.A Depression, unspecified; B19.20 Unspecified viral hepatitis C without hepatic coma; Z87.898 Personal history of other specified conditions; G89.29 Other chronic pain; Z98.84 Bariatric surgery status; Z90.49 Acquired absence of other specified parts of digestive tract; Z98.51 Tubal ligation status; F17.200 Nicotine dependence, unspecified, uncomplicated; Z71.6 Tobacco abuse counseling; Z80.0 Family history of malignant neoplasm of digestive organs; Z79.899 Other long term (current) drug therapy
CPT/HCPCS: 96372; 82075; 96361; 96374; 99285; 36415; 80053 ×2; 83735 ×2; 85025; 85027; 84703; 80306; G0378 ×2; G0480; S4990; J3360; S0109; J1644 ×2; 80320